=== PATIENT | male | born 1965 | race Caucasian/White ===

== ENCOUNTER → 2017-06-28 | Day surgery (SDC) | payer OTHER ==
[~2017-06-28] VITALS: Ht 180.3 cm; Wt 108.4 kg
[~2017-06-28] MED LIST: CIPRO500 M1 PO; DAILY VALUE1 EACH PO; FISH OIL 1,0001 EAC5 PO; KEFLEX500 M1 PO; PERCOCET 5-3251 EACH PO; PYRIDIUM200 M1 PO
--- NOTE | 2017-06-28 16:11 | Operative Report ---
Operative/Inv Procedure Report Surgery Date: 06/28/17 Name of Procedure: cystoscopy: laser lithotrypsy of very large bladder stone. Pre-Operative Diagnosis: bladder stone with urinary obstruction Post-Operative Diagnosis: same Estimated Blood Loss: scant Surgeon/Metal Hanging Helper: Tesfaye Boo MD Anesthesia: laryngeal mask airway Specimens: baldder stone fragments Complications: none Operative/Procedure Note Note: The patient was taken to the operating room and placed on the OR table in supine position. Timeout was performed to confirm correct patient, procedure, anesthesia, antibiotics, and other pertinant per-operative information. After adequate anesthesia and antibiotics, the patient was placed lithotomy stirrups, draped and prepped in usual surgical fashion. A 17 Mosotho cystoscope sheath with a 30 angle lens was inserted into the urethra, under direct visualization, and then advanced into the bladder. Upon entering the bladder, the bladder was noted to be mildly trabeculated with no evidence of tumor. There was a large stone adherent to the left wall of the bladder measuring appromately 10mm. Both ureteral orifices were in orthotopic position with clear reflux bilaterally. The single [id number] yellow stones was clearly visible in the bladder. Using the holmium/YAG 1000 microbrew meter laser fiber, laser lithotripsy of the bladder stones were planned. Under direct visualization, the laser fiber was inserted through the cystoscope. With the laser under direct contact with the stone, the laser was fired and laser lithotripsy of the bladder stones proceeded. After an extended period of time, both stones were noted to be completely pulverized. Shonna syringe was inserted through the cystoscope and evacuation of the fragments proceeded. The stone fragments were sent to pathology. Of signficance as discussed with the pt post- op, a prostatectomy coil suture was the nidus for the stone. removing it may cause disruption of the surgery and i decided to leave it in place. The cystoscope was then reinserted, to confirm no significant injury to the bladder, and all fragments of stone removed, the cystoscope was removed without difficulty. The patient tolerated the procedure well. All sponge needle and instrument count were correct at the end of the case. The patient is discharged home with pain medication, and antibiotics. Findings: 10cm bladder stone formed from prostatectomy FB/suture. Discharge Disposition: PACU CC: Tesfaye Boo MD
== END ==
LOC: STS 07:00
DX: N21.0 Calculus in bladder (principal); N32.89 Other specified disorders of bladder; Z85.46 Personal history of malignant neoplasm of prostate; I10 Essential (primary) hypertension; Z87.891 Personal history of nicotine dependence
CPT/HCPCS: 82355; J2250; J2405

== ENCOUNTER → 2018-02-05 | Day surgery (SDC) | payer OTHER ==
[~2018-02-05] VITALS: Ht 180.3 cm; Wt 104.3 kg
--- NOTE | 2018-02-05 08:17 | History & Physical Pre-Op ---
General Information and HPI History of Present Illness: Juarez is a 52-year-old male with a long-standing and worsening complaint of a painful and enlarging cyst on his left foot. The patient has undergone an extended course of conservative care, including treatment activity modification, rest, immobilization and course of NSAIDs. None of this year that have any significant relief. The patient presents today for preoperative surgical consultation. Allergies/Medications Allergies: Coded Allergies: meperidine (From DEMEROL) (Intermediate, NAUSEA/VOMITING 02/04/18) Home Med list Ciprofloxacin HCl (Cipro) 500 MG TABLET 1 TAB PO BID UTI Multivitamin (Daily Value) 1 EACH TABLET 1 TAB PO DAILY SUPPLEMENT (Reported) [place]-3S/Dha/Epa/Fish Oil (Fish Oil 1,000 MG Softgel) (Unknown Strength) CAPSULE (Unknown Dose) PO DAILY SUPPLEMENT (Reported) Oxycodone HCl/Acetaminophen (Percocet 5-325 MG Tablet) 5 MG-325 MG TABLET 1-2 TAB PO Q4-6H PRN PAIN Phenazopyridine HCl (Pyridium) 200 MG TABLET 1 TAB PO TID UTI Past History Medical History Neurological: NONE EENT: NONE Cardiovascular: hypertension, hyperlipidemia Respiratory: NONE Gastrointestinal: UMBILICAL HERNIA ? Hepatic: NONE Renal: NONE Psychiatric: NONE Endocrine: NONE Blood Disorders: NONE Cancer(s): prostate cancer BAG CHECKER/Reproductive: NONE History of MRSA: No History of VRE: No History of CDIFF: No Surgical History Pertinent Surgical History: none Past Family/Social History Psychosocial History Services at Home None Review of Systems Review of Systems: Unremarkable except for that noted in history of present illness Exam & Diagnostic Data Physical Exam: Lungs clear bilaterally. Heart sounds rate and rhythm regular. Lower extremity physical exam demonstrates intact pedal pulses bilaterally. Both dorsalis pedis and posterior tibial arteries are palpable bilaterally. Patient without any sensorimotor deficits. Patient will have a fluid-filled cystic lesion on his left foot. The lesion is nonpulsatile and freely mobile within the soft tissues. No osseous involvement identified on imaging. Assessment/Plan Assessment/Plan: Painful enlarging soft tissue mass left foot. A lengthy discussion reviewing both surgical and conservative options with the patient at bedside and the patient elected to go forward with surgery despite the risks. As Ranked By This Provider Problem List: 1. Neoplasm of unspecified behavior of bone, soft tissue, and skin Attending MD Review Statement Attending Statement Attending MD Statement: examined this patient
--- NOTE | 2018-02-05 12:59 | Operative Report ---
Operative/Inv Procedure Report Surgery Date: 02/05/18 Name of Procedure: 1 excision of soft tissue mass dorsal left foot 2 closure of open surgical wound with local random advancement flap 3 intraoperative menstruation Reichenbach anesthesia Pre-Operative Diagnosis: 1 painful and enlarging soft tissue mass dorsal left foot Post-Operative Diagnosis: The same Estimated Blood Loss: scant Surgeon/Clerical Production Worker: Vicente MILLER,Ayo Castellanos DPM Anesthesia: moderate sedation, block Operative/Procedure Note Note: After obtaining informed consent the patient was brought to the operating room and placed on the operating table in the supine position. The patient was then securely fastened to the operating table utilizing a safety belt. After administration of IV sedation, 10 cc of 0.5% Marcaine plain was infiltrated about the patient's left ankle. A well-padded ankle tourniquet was placed about the patient's left lower extremity. 2 g of Ancef were delivered intravenously 1 dose. Left foot and ankle were then scrubbed, prepped and draped in the usual aseptic manner. The left lower extremity is elevated to exsanguinate the limb, at which point the ankle tourniquet was inflated 250 mmHg. Attention was directed to assessment left foot where a fluctuant soft tissue mass was identified. A 15 blade was utilized to incise a skin biopsy medial to the neurovascular bundle. It was noted to extend 4 cm. The dissection then continued down to the septations tissues, where a gelatinous fluid-filled lesion was identified. The margins were carefully dissected free at the deep side extending from proximal to distal. The lesion was noted to be invested into the intrinsic musculature of the dorsal foot. The lesion was then passed from the operative field. Was noted to measure pressure 3 cm x 4 cm and was fluid- filled. The stalk was identified and cauterized. A dorsal medial dorsal lateral flap was then developed with undermining, mobilization and advancement of adjacent tissue centrally. The deep center flap was held with 4-0 Vicryl and the skin edges were 4 nylon. The incision was dressed with Xeroform, 4 x 4's, Kerlix and Saúl wrap. The patient noted to tolerate both procedure and anesthesia well and the patient was transferred from the operating room to recovery device in stable vessel status intact both the dorsal medial dorsolateral flaps.
== END ==
LOC: STS 01:46
DX: D21.22 Benign neoplasm of connective and other soft tissue of left lower limb, including hip (principal); I10 Essential (primary) hypertension; M10.9 Gout, unspecified
CPT/HCPCS: 88304; J0131; J0690; J2001; J2250; J3490